=== PATIENT | female | born 1985 | race Hispanic/Latino ===

== ENCOUNTER 2018-06-26 13:55 | Emergency (ER) | payer OTHER, SELFPAY ==
--- NOTE | 2018-06-26 14:21 | EDPHYS ---
Physician Documentation [facility] Name: Soraya Castaneda Age: 33 yrs Sex: Female : 1985 Arrival Date: 06/26/2018 Time: 13:57 Bed 15 Private MD: None, None ED Physician Efren Santos HPI: 06/26 14:15 This 33 yrs old Female presents to ER via Wheelchair with complaints of Pain nilo All Over, Weakness, Fall Injury. 14:15 The patient presents to the emergency department with weakness of the difficult walking.nilo 14:16 The patient has shortness of breath at rest, with light activity. 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 - Social history:: Smoking status: Patient uses tobacco products, smokes one-half pack cigarettes per day, Patient/guardian denies using alcohol. - Ebola Screening: : No symptoms or risks identified at this time. ROS: 14:16 Constitutional: Negative for fever, chills, and weight loss, Eyes: Negative for injury, nilo pain, redness, and discharge, ENT: Negative for injury, pain, and discharge, Neck: Negative for injury, pain, and swelling, Cardiovascular: Negative for chest pain, palpitations, and edema, Back: Negative for injury and pain, : Negative for injury, bleeding, discharge, and swelling, MS/Extremity: Negative for injury and deformity, Neuro: Negative for headache, weakness, numbness, tingling, and seizure, Psych: Negative for depression, anxiety, suicide ideation, homicidal ideation, and hallucinations, Allergy/Immunology: Negative for hives, rash, and allergies, Endocrine: Negative for neck swelling, polydipsia, polyuria, polyphagia, and marked weight changes, Hematologic/Lymphatic: Negative for swollen nodes, abnormal bleeding, and unusual bruising. 14:16 Respiratory: Positive for shortness of breath. 14:16 Abdomen/GI: Positive for abdominal pain, nausea and vomiting, of the epigastric area, right upper quadrant and left upper quadrant. Exam: 14:16 Constitutional: This is a well developed, well nourished patient who is awake, alert, nilo and in no acute distress. Head/Face: Normocephalic, atraumatic. Eyes: Pupils equal round and reactive to light, extra-ocular motions intact. Lids and lashes normal. Conjunctiva and sclera are non-icteric and not injected. Cornea within normal limits. Periorbital areas with no swelling, redness, or edema. ENT: Nares patent. No nasal discharge, no septal abnormalities noted. Tympanic membranes are normal and external auditory canals are clear. Oropharynx with no redness, swelling, or masses, exudates, or evidence of obstruction, uvula midline. Mucous membranes moist. Neck: Trachea midline, no thyromegaly or masses palpated, and no cervical lymphadenopathy. Supple, full range of motion without nuchal rigidity, or vertebral point tenderness. No Meningismus. Chest/axilla: Normal chest wall appearance and motion. Nontender with no deformity. No lesions are appreciated. Cardiovascular: Regular rate and rhythm with a normal S1 and S2. No gallops, murmurs, or rubs. Normal PMI, no JVD. No pulse deficits. Respiratory: Lungs have equal breath sounds bilaterally, clear to auscultation and percussion. No rales, rhonchi or wheezes noted. No increased work of breathing, no retractions or nasal flaring. Back: No spinal tenderness. No costovertebral tenderness. Full range of motion. Skin: Warm, dry with normal turgor. Normal color with no rashes, no lesions, and no evidence of cellulitis. MS/ Extremity: Pulses equal, no cyanosis. Neurovascular intact. Full, normal range of motion. Neuro: Awake and alert, GCS 15, oriented to person, place, time, and situation. Cranial nerves II-XII grossly intact. Motor strength 5/5 in all extremities. Sensory grossly intact. Cerebellar exam normal. Normal gait. Psych: Awake, alert, with orientation to person, place and time. Behavior, mood, and affect are within normal limits. 14:16 Abdomen/GI: Inspection: distension, Bowel sounds: diminished, Palpation: mild abdominal tenderness, in the epigastric area, right upper quadrant and left upper quadrant, Liver: is firm, Hernia: not appreciated. Vital Signs: 14:09 BP 117 / 86; Pulse 132; Resp 16; Pulse Ox 97% ; Weight 45.36 kg; Height 5 ft. 5 in. sv (165.10 cm); Pain 10/10; 14:13 Temp 97.9(A); la1 15:05 BP 120 / 90; Pulse 112; Resp 16; Pulse Ox 98% on R/A; la1 14:09 Body Mass Index 16.64 (45.36 kg, 165.10 cm) sv MDM: 14:01 Patient medically screened. [facility] 14:16 Data reviewed: vital signs, nurses notes, lab test result(s), EKG, radiologic studies, [facility] plain films. 06/26 14:15 Order name: Basic Metabolic Panel; Complete Time: 15:10 [facility] 06/26 14:15 Order name: CBC with Diff; Complete Time: 15:10 [facility] 06/26 14:15 Order name: LFT's; Complete Time: 15:10 [facility] 06/26 14:15 Order name: Magnesium; Complete Time: 15:10 [facility] 06/26 14:15 Order name: NT PRO-BNP; Complete Time: 15:10 [facility] 06/26 14:15 Order name: PT-INR; Complete Time: 15:10 [facility] 06/26 14:15 Order name: Troponin (emerg Dept Use Only); Complete Time: 15:10 [facility] 06/26 14:15 Order name: XRAY Chest (1 view); Complete Time: 15:10 [facility] 06/26 14:15 Order name: Lipase; Complete Time: 15:10 [facility] 06/26 14:15 Order name: EKG; Complete Time: 14:16 [facility] 06/26 14:15 Order name: Cardiac monitoring; Complete Time: 14:38 [facility] 06/26 14:15 Order name: EKG - Nurse/Tech; Complete Time: 14:38 [facility] 06/26 14:15 Order name: IV Saline Lock; Complete Time: 14:38 [facility] 06/26 14:15 Order name: Labs collected and sent; Complete Time: 14:38 [facility] 06/26 14:15 Order name: O2 Per Protocol; Complete Time: 14:38 [facility] 06/26 14:15 Order name: O2 Sat Monitoring; Complete Time: 14:38 [facility] Administered Medications: 14:37 Drug: Zofran 4 mg Route: IVP; Site: right upper arm; la1 15:04 Follow up: Response: No adverse reaction la1 14:37 Drug: NS 0.9% 500 ml Route: IV; Rate: bolus; Site: right upper arm; la1 15:04 Follow up: IV Status: Completed infusion la1 14:38 Drug: NS 0.9% 1000 ml Route: IV; Rate: 125 ml/hr; Site: right upper arm; la1 15:05 Follow up: IV Status: Infusion continued upon admission la1 14:38 Drug: ProTONIX 40 mg Route: IVP; Site: right upper arm; la1 15:05 Follow up: Response: No adverse reaction la1 14:38 Drug: Dilaudid 1 mg Route: IVP; Site: right upper arm; la1 15:05 Follow up: Response: No adverse reaction; Pain is decreased la1 16:29 Drug: Zofran 4 mg Route: IVP; Site: right upper arm; la1 16:29 Follow up: Response: No adverse reaction; Nausea is decreased la1 Disposition: 06/26/18 14:21 Transfer ordered to [facility]. Diagnosis are Vomiting - obstruction of gastroeso junction, stage 4 adenocarcinoma, Dyspnea, Abdominal tenderness, Ascites. - Reason for transfer: Higher level of care. - Accepting physician is robert yang. - Condition is Serious. - Problem is an ongoing problem. - Symptoms have worsened. Signatures: Dispatcher [employer] Akilah Rebolledo, RN RN Efren Hancock MD MD cha Attema, Lee, RN RN la1 Corrections: (The following items were deleted from the chart) 14:33 14:21 06/26/2018 14:21 Transfer ordered to Other Acute Care Facility. Diagnosis is nilo Vomiting - obstruction of gastroeso junction, stage 4 adenocarcinoma; Dyspnea; Abdominal tenderness. Reason for transfer: Higher level of care. Accepting physician is to dr hernandez j. ajani. Condition is Serious. Problem is an ongoing problem. Symptoms have worsened. [facility] 15:16 14:33 06/26/2018 14:21 Transfer ordered to Other Acute Care Facility. Diagnosis is nilo Vomiting - obstruction of gastroeso junction, stage 4 adenocarcinoma; Dyspnea; Abdominal tenderness; Ascites. Reason for transfer: Higher level of care. Accepting physician is to dr hernandez j. ajani. Condition is Serious. Problem is an ongoing problem. Symptoms have worsened. nilo 17:12 15:16 06/26/2018 14:21 Transfer ordered to [facility]. Diagnosis is la1 Vomiting - obstruction of gastroeso junction, stage 4 adenocarcinoma; Dyspnea; Abdominal tenderness; Ascites. Reason for transfer: Higher level of care. Accepting physician is robert yang. Condition is Serious. Problem is an ongoing problem. Symptoms have worsened. nilo
--- NOTE | 2018-06-26 14:21 | ER ---
Nurse's Notes [facility] Name: Soraya Castaneda Age: 33 yrs Sex: Female : 1985 Arrival Date: 06/26/2018 Time: 13:57 Bed 15 Private MD: None, None Diagnosis: Vomiting-obstruction of gastroeso junction, stage 4 adenocarcinoma;Dyspnea;Abdominal tenderness;Ascites Presentation: 06/26 13:59 Presenting complaint: Patient states: pain all over, weakness, SOB, and nausea. sv Transition of care: patient was not received from another setting of care. 13:59 Method Of Arrival: Wheelchair sv 14:07 Onset of symptoms was June 26, 2018. Care prior to arrival: None. sv 14:07 Acuity: BRIAN 3 sv 14:10 Risk Assessment: Do you want to hurt yourself or someone else? Patient reports no la1 desire to harm self or others. Initial Sepsis Screen: Does the patient meet any 2 criteria? HR > 90 bpm. Does the patient have a suspected source of infection? No. Patient's initial sepsis screen is negative. Triage Assessment: 13:59 General: Appears in no apparent distress. uncomfortable, slender, Behavior is calm, sv cooperative, appropriate for age. Pain: Complains of pain in "all over" Pain currently is 10 out of 10 on a pain scale. Is continuous. Neuro: Level of Consciousness is awake, alert, obeys commands, Oriented to person, place, time, situation, Moves all extremities. Gait is steady. Respiratory: Respiratory effort is even, unlabored, shallow, Respiratory pattern is regular, symmetrical. 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 - Social history:: Smoking status: Patient uses tobacco products, smokes one-half pack cigarettes per day, Patient/guardian denies using alcohol. - Ebola Screening: : No symptoms or risks identified at this time. Screenin:40 Abuse screen: Denies threats or abuse. Nutritional screening: No deficits noted. la1 Tuberculosis screening: No symptoms or risk factors identified. Fall Risk None identified. Assessment: 14:38 General: Appears ill, emaciated, Behavior is cooperative. Pain: Complains of pain in la1 left upper quadrant and right upper quadrant and epigastric area Pain currently is 9 out of 10 on a pain scale. Neuro: Level of Consciousness is awake, alert, obeys commands, Oriented to person, place, time, situation. Cardiovascular: Heart tones S1 S2 present Capillary refill < 3 seconds Patient's skin is warm and dry. Respiratory: Airway is patent Respiratory effort is even, unlabored, Respiratory pattern is regular, symmetrical. GI: Pt is actively vomiting bile, Bowel sounds present X 4 quads. Abd is non tender X 4 quads Reports nausea, vomiting. Vital Signs: 14:09 BP 117 / 86; Pulse 132; Resp 16; Pulse Ox 97% ; Weight 45.36 kg; Height 5 ft. 5 in. sv (165.10 cm); Pain 10/10; 14:13 Temp 97.9(A); la1 15:05 BP 120 / 90; Pulse 112; Resp 16; Pulse Ox 98% on R/A; la1 14:09 Body Mass Index 16.64 (45.36 kg, 165.10 cm) sv ED Course: 13:57 Patient arrived in ED. mr 13:58 None, None is Private Physician. mr 13:59 Arm band placed on Patient placed in an exam room, on a stretcher, on pulse oximetry. sv 14:01 Piotr Dukes RN is Primary Nurse. la1 14:01 Efren Santos MD is Attending Physician. nilo 14:08 Triage completed. sv 14:39 Accessed PICC line. Clean \\T\\ dry. Dressing intact. Good blood return. Flushes easily. la1 14:40 X-ray completed. Portable x-ray completed in exam room. Patient tolerated procedure mh1 well. 14:40 Placed in gown. Bed in low position. Call light in reach. Pulse ox on. NIBP on. la1 14:41 XRAY Chest (1 view) In Process Unspecified. EDMS 14:45 EKG done, by weight reducing technician. reviewed by Efren Santos MD. tc 17:11 No provider procedures requiring assistance completed. Patient transferred, IV remains la1 in place. Administered Medications: 14:37 Drug: Zofran 4 mg Route: IVP; Site: right upper arm; la1 15:04 Follow up: Response: No adverse reaction la1 14:37 Drug: NS 0.9% 500 ml Route: IV; Rate: bolus; Site: right upper arm; la1 15:04 Follow up: IV Status: Completed infusion la1 14:38 Drug: NS 0.9% 1000 ml Route: IV; Rate: 125 ml/hr; Site: right upper arm; la1 15:05 Follow up: IV Status: Infusion continued upon admission la1 14:38 Drug: ProTONIX 40 mg Route: IVP; Site: right upper arm; la1 15:05 Follow up: Response: No adverse reaction la1 14:38 Drug: Dilaudid 1 mg Route: IVP; Site: right upper arm; la1 15:05 Follow up: Response: No adverse reaction; Pain is decreased la1 16:29 Drug: Zofran 4 mg Route: IVP; Site: right upper arm; la1 16:29 Follow up: Response: No adverse reaction; Nausea is decreased la1 Outcome: 14:21 ER care complete, transfer ordered by MD. corcoran 17:11 Transferred by ground EMS to [facility], Transfer form completed. X-rays la1 sent w/ patient. 17:11 Condition: stable 17:11 Instructed on the need for transfer. 17:12 Patient left the ED. la1 Signatures: Dispatcher [employer] Akilah Rebolledo, Efren Oneal RN, MD MD cha Rivera, Katherine mr Abiola [facility] Karley Barahona, facilitator EKG Piotr Ashraf, ELOY RN penny1
[2018-06-26] MEDS ORDERED: ONDANSETRON 4 MG/2 ML VIAL ONE ×2 (14:35→16:23)
[2018-06-26] MEDS ORDERED: PANTOPRAZOLE 40 MG INJ ONE (14:35)
[2018-06-26] MEDS ORDERED: NA CHLORIDE 0.9% 1,000 ML ONE (14:35)
[2018-06-26] MEDS ORDERED: HYDROMORPHONE HCL 1 MG/ML INJ ONE (14:35)
[2018-06-26 14:39] LABS: Absolute Lymphocytes (CBC) 1.3 K/uL (0.7-4.9); Absolute Monocytes 0.9 K/uL (0.1-1.3); Absolute Neutrophil 4.5 K/uL (1.8-8.0); Basophils % 0.1 % (0-1.3); Eosinophils % 1.4 % (0-4.4); Hematocrit 33.3 % (36.0-45.0); Lymphocytes % 19.6 % (15.3-44.8); MCV 79.3 fL (80-100); MPV 8.9 fL (7.6-11.3); Monocytes % 12.9 % (3.3-12.3); Protime INR 1.16
--- NOTE | 2018-06-26 14:47 | RAD REPORT ---
EXAM DESCRIPTION: Juan Single View06/26/2018 2:41 pm CLINICAL HISTORY: Chest pain COMPARISON: none FINDINGS: The lungs appear clear of acute infiltrate. The heart is normal size. A PICC line has its tip several centimeters into the right atrium
[2018-06-26 14:51] LABS: ALT/SGPT 74 U/L (12-78); AST/SGOT 32 U/L (15-37); Albumin 2.9 g/dL (3.4-5.0); Alkaline Phosphatase 183 U/L (45-117); BUN Blood Urea Nitrogen 29 mg/dL (7-18); Bicarbonate 21 mmol/L (21-32); Bilirubin Direct 0.4 mg/dL (0-0.2); Bilirubin Total 0.7 mg/dL (0.2-1.0); Glucose Level 126 mg/dL (74-106); Lipase 166 U/L (73-393); Magnesium 2.3 mg/dL (1.8-2.4); NT PRO-BNP 194 pg/mL (<125); Potassium 3.7 mmol/L (3.5-5.1); Protein, Total 8.3 g/dL (6.4-8.2); Sodium Level 129 mmol/L (136-145); Troponin (Emerg Dept Use Only) < 0.02 ng/mL (0.0-0.045)
--- NOTE | 2018-06-26 15:14 | EKG ---
Test Date: 2018-06-26 Test Time: 14:36:15 [employer] Operator: MILI MEASUREMENT RESULTS: Intervals: Rate: 120 TX: 114 QRSD: 78 QT: 306 QTc: 432 [place]: P: 77 TX: 114 QRS: 75 T: 63 INTERPRETIVE STATEMENTS: Sinus tachycardia Otherwise normal ECG No previous ECG available for comparison Electronically Signed On 06-26-18 15:14:06 CDT by Jason Squires
== END 2018-06-26 17:12 | disposition short-term general hospital (02) ==
LOC: ER 13:55
DX: C16.0 Malignant neoplasm of cardia (principal); C79.89 Secondary malignant neoplasm of other specified sites; C79.60 Secondary malignant neoplasm of unspecified ovary; R06.00 Dyspnea, unspecified; R18.8 Other ascites; W18.30XA Fall on same level, unspecified, initial encounter; Y93.9 Activity, unspecified; Y92.009 Unspecified place in unspecified non-institutional (private) residence as the place of occurrence of the external cause; F17.210 Nicotine dependence, cigarettes, uncomplicated
CPT/HCPCS: 36415; 71045; 80048; 80076; 83690; 83735; 83880; 84484; 85025; 85610; 93005; 96374; 96375; 99285; C9113; J1170; J2405; J7030

== ENCOUNTER 2018-07-10 20:41 | Emergency (ER) | payer OTHER ==
--- OUTSIDE RECORDS SUMMARY | 2018-07-10 20:44 | XMS REPORT | Clinical Summary ---
:1985 Author Organization [facility] Address [address] [place] [address] Care Team Providers Name Role Phone Asked, No Pcp Primary Care Provider Unavailable Allergies No Known Allergies Medications Medication Sig Dispensed Refills Start Date End Date Status ondansetron Infuse 2 mL (4 20 mL 0 06/28/2018 Active (ZOFRAN) 4 mg/2 mL mg total) into injection a venous catheter every 8 (eight) hours as needed for nausea or vomiting. scopolamine Place 1 patch 10 patch 11 06/28/2018 06/28/2019 Active (TRANSDERM-SCOP) 1 on the skin mg over 3 days every third day. sodium chloride Infuse 12.5 mg 1 mL 0 06/28/2018 Active 0.9% solution 10 mL into a venous with promethazine catheter every 25 mg/mL solution 6 (six) hours 12.5 mg injection as needed for nausea or vomiting. enoxaparin Inject 0.4 mL 0 06/28/2018 Active (LOVENOX) 40 mg/0.4 (40 mg total) mL syringe under the skin daily. potassium Infuse 50 0 06/28/2018 Active chloride/D5-0.9%NaC mL/hr into a l (POTASSIUM venous CHLORIDE-DEXTROSE catheter 5%-0.9% SODIUM continuously. CHLORIDE) 20 mEq/L TPN FOR DISCHARGE See most 1 Package 0 06/28/2018 Active recent TPN order. fentaNYL Place 1 patch 0 06/24/2018 06/26/2018 Discontinued (DURAGESIC) 75 on the skin mcg/hr every third day. 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 Last Filed Vital Signs Vital Sign Reading Time Taken Blood Pressure 117/83 06/28/2018 11:42 AM CDT Pulse 124 06/28/2018 11:42 AM CDT Temperature 36.4 C (97.6 F) 06/28/2018 11:42 AM CDT Respiratory Rate 18 06/28/2018 11:42 AM CDT Oxygen Saturation 100% 06/28/2018 11:42 AM CDT Inhaled Oxygen Concentration - - Weight 46.6 kg (102 lb 12.8 oz) 06/26/2018 7:54 PM CDT Height 165.1 cm (5' 5") 06/26/2018 7:54 PM CDT Body Mass Index 17.11 06/26/2018 7:54 PM CDT Plan of Treatment Health Maintenance Due Date Last Done Comments CERVICAL CANCER SCREENING 2006 INFLUENZA VACCINE 03/27/2018 Implants Implanted Type Area Drier Feeder Device Identifier Shelf Expiration Model / Date Serial / Lot Control Procedures Procedure Name Priority Date/Time Associated Comments Diagnosis ESTIMATED GFR Routine 06/28/2018 4:45 Results for this AM CDT procedure are in the results section. PHOSPHORUS LEVEL Routine 06/28/2018 4:45 Results for this AM CDT procedure are in the results section. MAGNESIUM LEVEL Routine 06/28/2018 4:45 Results for this AM CDT procedure are in the results section. BASIC METABOLIC PANEL Routine 06/28/2018 4:45 Results for this AM CDT procedure are in the results section. TRIGLYCERIDES Routine 06/28/2018 4:45 Results for this AM CDT procedure are in the results section. POC GLUCOSE Routine 06/28/2018 3:51 Results for this AM CDT procedure are in the results section. POC GLUCOSE Routine 06/27/2018 10:36 Results for this PM CDT procedure are in the results section. ESTIMATED GFR Routine 06/27/2018 4:00 Results for this AM CDT procedure are in the results section. PHOSPHORUS LEVEL Routine 06/27/2018 4:00 Results for this AM CDT procedure are in the results section. MAGNESIUM LEVEL Routine 06/27/2018 4:00 Results for this AM CDT procedure are in the results section. BASIC METABOLIC PANEL Routine 06/27/2018 4:00 Results for this AM CDT procedure are in the results section. HC COMPLETE BLD COUNT Routine 06/26/2018 10:45 Results for this W/AUTO DIFF PM CDT procedure are in the results section. XR CHEST 1 VW PORTABLE STAT 06/26/2018 9:40 Results for this PM CDT procedure are in the results section. TYPE AND SCREEN Routine 06/26/2018 9:40 Results for this PM CDT procedure are in the results section. PROTHROMBIN TIME WITH STAT 06/26/2018 9:40 Results for this INR PM CDT procedure are in the results section. PARTIAL THROMBOPLASTIN STAT 06/26/2018 9:40 Results for this TIME (PTT) PM CDT procedure are in the results section. CBC WITH PLATELET AND STAT 06/26/2018 9:40 Results for this DIFFERENTIAL PM CDT procedure are in the results section. PREALBUMIN LEVEL Routine 06/26/2018 9:09 Results for this PM CDT procedure are in the results section. C-REACTIVE PROTEIN Routine 06/26/2018 9:09 Results for this PM CDT procedure are in the results section. CARCINOEMBRYONIC ANTIGEN Routine 06/26/2018 8:49 Results for this (CEA) PM CDT procedure are in the results section. ESTIMATED GFR STAT 06/26/2018 8:48 Results for this PM CDT procedure are in the results section. PHOSPHORUS LEVEL STAT 06/26/2018 8:48 Results for this PM CDT procedure are in the results section. MAGNESIUM LEVEL STAT 06/26/2018 8:48 Results for this PM CDT procedure are in the results section. LDH STAT 06/26/2018 8:48 Results for this PM CDT procedure are in the results section. LACTIC ACID LEVEL STAT 06/26/2018 8:48 Results for this PM CDT procedure are in the results section. IONIZED CALCIUM STAT 06/26/2018 8:48 Results for this PM CDT procedure are in the results section. HEPATIC FUNCTION PANEL STAT 06/26/2018 8:48 Results for this PM CDT procedure are in the results section. BASIC METABOLIC PANEL STAT 06/26/2018 8:48 Results for this PM CDT procedure are in the results section. after 07/09/2017 Results Estimated GFR (06/28/2018 4:45 AM CDT)Only the most recent of3 resultswithin the time period is included. Estimated GFR >=90 mL/min/1.73 m2 [facility] DEPARTMENT OF Comment: PATHOLOGY AND GENOMIC CatergoryUnitsInterpretation MEDICINE G1 >=90 Normal or high G2 60-89Mildly decreased [id number] to moderately decreased [id number] to severely decreased G4 15-29Severely decreased G5 <15Kidney failure The eGFR was calculated using the Chronic Kidney Disease Epidemiology Collaboration (CKD-EPI) equation. Interpretation is based on recommendations of the National Kidney Foundation-Kidney Disease Outcomes Quality Initiative (NKF-KDOQI) published in 2014. Specimen Plasma specimen Performing Organization Address City/[facility] Phone Number [facility] DEPARTMENT OF PATHOLOGY AND [address] [place] [address] Triglycerides (06/28/2018 4:45 AM CDT) Triglycerides 102 <150 mg/dL [facility] DEPARTMENT OF PATHOLOGY AND GENOMIC MEDICINE Specimen Plasma specimen Performing Organization Address [facility] Phone Number [facility] DEPARTMENT OF PATHOLOGY AND [address] [place] [address] Phosphorus level (06/28/2018 4:45 AM CDT)Only the most recent of3 resultswithin the time period is included. Phosphorus 2.3 (L) 2.4 - 4.5 mg/dL [facility] DEPARTMENT OF PATHOLOGY AND GENOMIC MEDICINE Specimen Plasma specimen Performing Organization Address [facility] Phone Number [facility] DEPARTMENT OF PATHOLOGY AND [address] [place] [address] Magnesium level (06/28/2018 4:45 AM CDT)Only the most recent of3 resultswithin the time period is included. Magnesium 1.7 1.6 - 2.6 mg/dL [facility] DEPARTMENT OF PATHOLOGY AND GENOMIC MEDICINE Specimen Plasma specimen Performing Organization Address [facility] Phone Number [facility] DEPARTMENT OF PATHOLOGY AND [address] [place] [address] Basic metabolic panel (06/28/2018 4:45 AM CDT)Only the most recent of3 resultswithin the time period is included. Sodium 135 135 - 148 mEq/L [facility] DEPARTMENT OF PATHOLOGY AND GENOMIC MEDICINE Potassium 4.5 3.5 - 5.0 mEq/L [facility] DEPARTMENT OF PATHOLOGY AND GENOMIC MEDICINE Chloride 101 98 - 112 mEq/L [facility] DEPARTMENT OF PATHOLOGY AND GENOMIC MEDICINE CO2 20 (L) 24 - 31 mEq/L [facility] DEPARTMENT OF PATHOLOGY AND GENOMIC MEDICINE Anion gap 14@ANIO 7 - 15 mEq/L [facility] DEPARTMENT OF PATHOLOGY AND GENOMIC MEDICINE BUN 18 6 - 20 mg/dL [facility] DEPARTMENT OF PATHOLOGY AND GENOMIC MEDICINE Creatinine 0.43 (L) 0.50 - 0.90 mg/dL [facility] DEPARTMENT OF PATHOLOGY AND GENOMIC MEDICINE Glucose 140 (H) 65 - 99 mg/dL [facility] DEPARTMENT OF PATHOLOGY AND GENOMIC MEDICINE Calcium 9.3 8.3 - 10.2 mg/dL [facility] DEPARTMENT OF PATHOLOGY AND GENOMIC MEDICINE Specimen Plasma specimen Performing Organization Address [facility] Phone Number [facility] DEPARTMENT OF PATHOLOGY AND [address] [place] [address] GENOMIC MEDICINE POC glucose (06/28/2018 3:51 AM CDT)Only the most recent of2 resultswithin the time period is included. POC glucose 141 (H) 65 - 99 mg/dL [facility] DEPARTMENT OF PATHOLOGY AND Comment: GENOMIC MEDICINE No Action Needed Meter ID: [id number] Technical Services Specialist: Kaden Cintron Performing Organization Address City/[facility]/Zipcode Phone Number [facility] DEPARTMENT OF PATHOLOGY AND [address] [place] [address] CBC with platelet and differential (06/26/2018 10:45 PM CDT)Only the most recent of2 resultswithin the time period is included. WBC 6.69 4.50 - 11.00 k/uL [facility] DEPARTMENT OF PATHOLOGY AND GENOMIC MEDICINE RBC 3.77 (L) 4.20 - 5.50 m/uL [facility] DEPARTMENT OF PATHOLOGY AND GENOMIC MEDICINE HGB 9.7 (L) 12.0 - 16.0 g/dL [facility] DEPARTMENT OF PATHOLOGY AND GENOMIC MEDICINE HCT 30.5 (L) 37.0 - 47.0 % [facility] DEPARTMENT OF PATHOLOGY AND GENOMIC MEDICINE MCV 80.9 (L) 82.0 - 100.0 fL [facility] DEPARTMENT OF PATHOLOGY AND GENOMIC MEDICINE MCH 25.7 (L) 27.0 - 34.0 pg [facility] DEPARTMENT OF PATHOLOGY AND GENOMIC MEDICINE MCHC 31.8 31.0 - 37.0 g/dL [facility] DEPARTMENT OF PATHOLOGY AND GENOMIC MEDICINE RDW - SD 47.8 37.0 - 55.0 fL [facility] DEPARTMENT OF PATHOLOGY AND GENOMIC MEDICINE MPV 10.6 8.8 - 13.2 fL [facility] DEPARTMENT OF PATHOLOGY AND GENOMIC MEDICINE Platelet count 408 (H) 150 - 400 k/uL [facility] DEPARTMENT OF PATHOLOGY AND GENOMIC MEDICINE Nucleated RBC 0.00 /100 WBC [facility] DEPARTMENT OF PATHOLOGY AND GENOMIC MEDICINE Neutrophils 64.3 39.0 - 69.0 % [facility] DEPARTMENT OF PATHOLOGY AND GENOMIC MEDICINE Lymphocytes 21.2 (L) 25.0 - 45.0 % [facility] DEPARTMENT OF PATHOLOGY AND GENOMIC MEDICINE Monocytes 12.4 (H) 0.0 - 10.0 % [facility] DEPARTMENT OF PATHOLOGY AND GENOMIC MEDICINE Eosinophils 1.0 0.0 - 5.0 % [facility] DEPARTMENT OF PATHOLOGY AND GENOMIC MEDICINE Basophils 0.1 0.0 - 1.0 % [facility] DEPARTMENT OF PATHOLOGY AND GENOMIC MEDICINE Immature granulocytes 1.0Comment: 0.0 - 1.0 % [facility] DEPARTMENT OF "Immature PATHOLOGY AND GENOMIC granulocytes" MEDICINE (promyelocytes, myelocytes, metamyelocytes) Performing Organization Address City/State/Zipcode Phone Number [facility] DEPARTMENT OF PATHOLOGY AND [address] [place] [address] [facility] XR Chest 1 Vw Portable (06/26/2018 9:40 PM CDT) Narrative Performed At EXAMINATION:XR CHEST 1 VW PORTABLE [facility]IANT CLINICAL HISTORY:PIcc line TECHNIQUE:XR CHEST 1 VW PORTABLE COMPARISON:None. FINDINGS: Lines/tubes:There is a rightupper extremity PICC with its tip terminating near the cavoatrial junction.. Heart and mediastinum:Unremarkable Lungs:The lungs are well inflated and clear. There is no evidence of pneumonia or pulmonary edema. Pleura:There is no pleural effusion. There is no pneumothorax. Bones and Soft Tissues:Unremarkable. Abdomen: Surgical clips project over the right upper quadrant of the abdomen, suggestive of prior cholecystectomy. IMPRESSION: Right upper extremity PICC terminates near the cavoatrial junction. No acute cardiopulmonary abnormality. [facility]-[id number] Procedure Note Interface, Radiology Results Incoming - 06/26/2018 9:47 PM CDT EXAMINATION: XR CHEST 1 VW PORTABLE CLINICAL HISTORY: PIcc line TECHNIQUE: XR CHEST 1 VW PORTABLE COMPARISON: None. FINDINGS: Lines/tubes: There is a right upper extremity PICC with its tip terminating near the cavoatrial junction.. Heart and mediastinum: Unremarkable Lungs: The lungs are well inflated and clear. There is no evidence of pneumonia or pulmonary edema. Pleura: There is no pleural effusion. There is no pneumothorax. Bones and Soft Tissues: Unremarkable. Abdomen: Surgical clips project over the right upper quadrant of the abdomen, suggestive of prior cholecystectomy. IMPRESSION: Right upper extremity PICC terminates near the cavoatrial junction. No acute cardiopulmonary abnormality. [facility]-[id number] Performing Organization Address [facility] Phone Number [facility] [address] [place] [address] Partial thromboplastin time, activated (06/26/2018 9:40 PM CDT) PTT 22.6 (L) 23.0 - 36.0 sec [facility] DEPARTMENT OF PATHOLOGY Comment: AND GENOMIC MEDICINE PTT therapeutic range for unfractionated heparin is 61.0-112.0 seconds which corresponds to Anti-Xa 0.3-0.7 U/ml. Specimen Blood Performing Organization Address [facility] Phone Number [facility] DEPARTMENT OF PATHOLOGY AND [address] [place] [phone] [facility] Prothrombin time with INR (06/26/2018 9:40 PM CDT) Prothrombin time 13.9 11.5 - 14.5 sec [facility] DEPARTMENT OF PATHOLOGY AND GENOMIC MEDICINE INR 1.1 [facility] DEPARTMENT OF Comment: PATHOLOGY AND GENOMIC The International Normalized Ratio (INR) is a therapeutic MEDICINE monitoring tool for patients who are stable on oral anticoagulant therapy. An INR of 2.0-3.0 is suggested for deep vein thrombosis/pulmonary embolism. Specimen Blood Performing Organization Address [facility] Phone Number [facility] DEPARTMENT OF PATHOLOGY AND [address] [place] [address] GENOMIC MEDICINE Type and screen (06/26/2018 9:40 PM CDT) ABO grouping O [facility] DEPARTMENT OF PATHOLOGY AND GENOMIC MEDICINE Rh type POS [facility] DEPARTMENT OF PATHOLOGY AND GENOMIC MEDICINE Antibody screen (gel) NEG [facility] DEPARTMENT OF PATHOLOGY AND GENOMIC MEDICINE Specimen Blood Performing Organization Address City/[facility] Phone Number [facility] DEPARTMENT OF PATHOLOGY AND [address] [place] [address] GENOMIC MEDICINE C-reactive protein (06/26/2018 9:09 PM CDT) CRP 13.03 (H) 0.00 - 0.50 mg/dL [facility] DEPARTMENT OF PATHOLOGY AND GENOMIC MEDICINE Specimen Plasma specimen Performing Organization Address [facility] Phone Number [facility] DEPARTMENT OF PATHOLOGY AND [address] [place] [address] Prealbumin level (06/26/2018 9:09 PM CDT) Prealbumin 14 (L) 16 - 32 mg/dL [facility] DEPARTMENT OF PATHOLOGY AND GENOMIC MEDICINE Specimen Serum Performing Organization Address [facility] Phone Number [facility] DEPARTMENT OF PATHOLOGY AND [address] [place] [address] Carcinoembryonic antigen (CEA) (06/26/2018 8:49 PM CDT) CEA 2.6 0.0 - 3.8 ng/mL [facility] DEPARTMENT OF PATHOLOGY Comment: AND GENOMIC MEDICINE Reference range for heavy smokers:0.0 - 5.5 ng/mL The YOLANDA Anita 8000 CEA immunoassay was used. Results obtained with different assay methods or kits should not be used interchangeably and may be different. Specimen Serum Performing Organization Address [facility] Phone Number [facility] DEPARTMENT OF PATHOLOGY AND [address] [place] [address] LDH (06/26/2018 8:48 PM CDT) LDH 212 87 - 225 U/L [facility] DEPARTMENT OF PATHOLOGY AND GENOMIC MEDICINE Specimen Plasma specimen Performing Organization Address [facility] Phone Number [facility] DEPARTMENT OF PATHOLOGY AND [address] [place] [address] Lactic acid level (06/26/2018 8:48 PM CDT) Lactic acid 1.3 0.5 - 2.2 mmol/L [facility] DEPARTMENT OF PATHOLOGY AND GENOMIC MEDICINE Specimen Plasma specimen Performing Organization Address [facility] Phone Number [facility] DEPARTMENT OF PATHOLOGY AND [address] [place] [address] Ionized calcium (06/26/2018 8:48 PM CDT) pH 7.39 [facility] DEPARTMENT OF PATHOLOGY AND GENOMIC MEDICINE Ionized calcium 1.28 1.11 - 1.32 mmol/L [facility] DEPARTMENT OF PATHOLOGY AND GENOMIC MEDICINE Specimen Plasma specimen Performing Organization Address [facility]/Zipcode Phone Number [facility] DEPARTMENT OF PATHOLOGY AND [address] [place] [address] GENOMIC MEDICINE Hepatic function panel (06/26/2018 8:48 PM CDT) Albumin 2.6 (L) 3.5 - 5.0 g/dL [facility] DEPARTMENT OF PATHOLOGY AND GENOMIC MEDICINE Total bilirubin 0.7 0.0 - 1.2 mg/dL [facility] DEPARTMENT OF PATHOLOGY AND GENOMIC MEDICINE Bilirubin direct 0.3 0.0 - 0.3 mg/dL [facility] DEPARTMENT OF PATHOLOGY AND GENOMIC MEDICINE Alkaline phosphatase 180 (H) 35 - 104 U/L [facility] DEPARTMENT OF PATHOLOGY AND GENOMIC MEDICINE Protein 7.8 6.3 - 8.3 g/dL [facility] DEPARTMENT OF Comment: PATHOLOGY AND GENOMIC 4.6-7.0 g/dL MEDICINE 1 week 4.4-7.6 g/dL 7 months-1year5.1-7.3 g/dL 1-2 years5.6-7.5 g/dL >3 years6.0-8.0 g/dL 18-150 6.3-8.3 g/dL ALT 66 (H) 5 - 50 U/L [facility] DEPARTMENT OF PATHOLOGY AND GENOMIC MEDICINE AST 49 (H) 10 - 35 U/L [facility] DEPARTMENT OF PATHOLOGY AND GENOMIC MEDICINE Specimen Plasma specimen Performing Organization Address City/State/Zipcode Phone Number [facility] DEPARTMENT OF PATHOLOGY AND [address] [place] [address] [facility] after 07/09/2017 Insurance Payer Benefit Plan / Group Subscriber ID Type Phone Address [facility] xxxxxxxxxx Commercial Advance Directives Patient has advance care planning documents on file. For more information, please contact:T[id number] [place] [address]
[2018-07-10] MEDS ORDERED: NA CHLORIDE 0.9% 1,000 ML ONE (22:08)
[2018-07-10] MEDS ORDERED: HYDROMORPHONE HCL 1 MG/ML INJ ONE (22:08)
[2018-07-11] MEDS ORDERED: HYDROMORPHONE HCL 1 MG/ML INJ ONE (00:27)
--- NOTE | 2018-07-11 01:43 | EDPHYS ---
Physician Documentation [facility] Name: Soraya Castaneda Age: 33 yrs Sex: Female : 1985 Arrival Date: 07/10/2018 Time: 20:44 Bed 20 Private MD: None, None ED Physician Og Ervin HPI: 07/11 01:39 This 33 yrs old Female presents to ER via Wheelchair with complaints of gs Breathing Difficulty. 01:39 Onset: The symptoms/episode began/occurred this morning. Duration: The symptoms are gs intermittent. Associated signs and symptoms: Pertinent negatives: chest pain, general weakness. Severity of symptoms: At their worst the symptoms were moderate in the emergency department the symptoms are unchanged. The patient has experienced similar episodes in the past, chronically. pt is terminal ca, feels weak sob on hospice . 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 - Social history:: Smoking status: Patient/guardian denies using tobacco. - Ebola Screening: : Patient negative for fever greater than or equal to 101.5 degrees Fahrenheit, and additional compatible Ebola Virus Disease symptoms Patient denies exposure to infectious person Patient denies travel to an Ebola-affected area in the 21 days before illness onset No symptoms or risks identified at this time. ROS: 07/11 01:39 All other systems are negative. gs Exam: 01:39 Head/Face: Normocephalic, atraumatic. Eyes: Pupils equal round and reactive to light, gs extra-ocular motions intact. Lids and lashes normal. Conjunctiva and sclera are non-icteric and not injected. Cornea within normal limits. Periorbital areas with no swelling, redness, or edema. ENT: Nares patent. No nasal discharge, no septal abnormalities noted. Tympanic membranes are normal and external auditory canals are clear. Oropharynx with no redness, swelling, or masses, exudates, or evidence of obstruction, uvula midline. Mucous membranes moist. Neck: Trachea midline, no thyromegaly or masses palpated, and no cervical lymphadenopathy. Supple, full range of motion without nuchal rigidity, or vertebral point tenderness. No Meningismus. Chest/axilla: Normal chest wall appearance and motion. Nontender with no deformity. No lesions are appreciated. 01:39 Abdomen/GI: Soft, non-tender, with normal bowel sounds. No distension or tympany. No guarding or rebound. No evidence of tenderness throughout. Skin: Warm, dry with normal turgor. Normal color with no rashes, no lesions, and no evidence of cellulitis. MS/ Extremity: Pulses equal, no cyanosis. Neurovascular intact. Full, normal range of motion. Neuro: Awake and alert, GCS 15, oriented to person, place, time, and situation. Cranial nerves II-XII grossly intact. Motor strength 5/5 in all extremities. Sensory grossly intact. Cerebellar exam normal. Normal gait. 01:39 Constitutional: The patient appears alert, awake, frail. 01:39 Cardiovascular: Rate: tachycardic, Rhythm: regular. 01:39 Respiratory: mild respiratory distress is noted, Respirations: tachypnea, Breath sounds: rhonchi, that are mild, are heard diffusely. Vital Signs: 07/10 20:55 BP 83 / 53; Pulse 126; Resp 34; Temp 97.8(A); Pulse Ox 99% on R/A; Weight 45.36 kg; aj Height 5 ft. 5 in. (165.10 cm); 20:55 Body Mass Index 16.64 (45.36 kg, 165.10 cm) MDM: 21:36 Patient medically screened. 07/11 01:39 Data reviewed: vital signs, nurses notes. Counseling: I had a detailed discussion with the patient and/or guardian regarding: the historical points, exam findings, and any diagnostic results supporting the discharge/admit diagnosis, pt and family wish to be discharge will contact hospice for further interventions, pt states she feels much better. Administered Medications: 07/10 22:09 Drug: NS 0.9% 1000 ml Route: IV; Rate: 1 bolus; Site: left wrist; jd3 07/11 02:04 Follow up: Response: No adverse reaction; IV Status: Completed infusion; IV Intake: jd3 1000ml 07/10 22:09 Drug: Dilaudid 1 mg Route: IVP; Site: left wrist; jd3 23:00 Follow up: Response: No adverse reaction; Pain is decreased jd3 07/11 00:25 Drug: Dilaudid 1 mg Route: IVP; Site: right wrist; jd3 02:06 Follow up: Response: No adverse reaction jd3 Disposition: 07/11/18 01:42 Discharged to Home. Impression: Weakness, Dehydration, Hypoxemia. - Condition is Stable. - Discharge Instructions: Dehydration, Adult, Weakness. - Medication Reconciliation Form, Thank You Letter, Antibiotic Education, Prescription Opioid Use form. - Follow up: Private Physician; When: 1 - 2 days; Reason: Re-evaluation by your physician. Signatures: Maribeth Gaston RN RN aj Starr, Gregory, MD MD gs Davies, Jonathon, RN RN jd3 Corrections: (The following items were deleted from the chart) 02:06 01:42 07/11/2018 01:42 Discharged to Home. Impression: Weakness; Dehydration; jd3 Hypoxemia. Condition is Stable. Forms are Medication Reconciliation Form, Thank You Letter, Antibiotic Education, Prescription Opioid Use. Follow up: Private Physician; When: 1 - 2 days; Reason: Re-evaluation by your physician. gs
--- NOTE | 2018-07-11 01:43 | ER ---
Nurse's Notes [facility] Name: Soraya Castaneda Age: 33 yrs Sex: Female : 1985 Arrival Date: 07/10/2018 Time: 20:44 Bed 20 Private MD: None, None Diagnosis: Weakness;Dehydration;Hypoxemia Presentation: 07/10 20:54 Transition of care: patient was not received from another setting of care. Onset of aj symptoms was July 10, 2018. Risk Assessment: Do you want to hurt yourself or someone else? Patient reports no desire to harm self or others. Initial Sepsis Screen: Does the patient meet any 2 criteria? No. Patient's initial sepsis screen is negative. Does the patient have a suspected source of infection? No. Patient's initial sepsis screen is negative. Care prior to arrival: None. 20:54 Method Of Arrival: Wheelchair aj 20:54 Acuity: BRIAN 2 aj 20:54 Presenting complaint: Mother states: Patient was very uncomfortable at home and hospice jd3 nurse was unable to respond quickly enough to patient's home. Patient is having SOB and discomfort. Triage Assessment: 20:55 General: Appears in no apparent distress. uncomfortable, emaciated, Behavior is drowsy. aj Pain: Complains of pain in entire body. Neuro: Level of Consciousness is awake, alert, obeys commands, Oriented to person, place, time, situation, Appropriate for age. Respiratory: Reports shortness of breath Airway is patent Respiratory effort is even, labored, Respiratory pattern is tachypnea Onset: The symptoms/episode began/occurred gradually, the patient has moderate shortness of breath. Derm: Skin is thin, Skin is pale. 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 - Social history:: Smoking status: Patient/guardian denies using tobacco. - Ebola Screening: : Patient negative for fever greater than or equal to 101.5 degrees Fahrenheit, and additional compatible Ebola Virus Disease symptoms Patient denies exposure to infectious person Patient denies travel to an Ebola-affected area in the 21 days before illness onset No symptoms or risks identified at this time. Screenin:38 Abuse screen: Denies threats or abuse. Nutritional screening:. Tuberculosis screening: jd3 No symptoms or risk factors identified. Fall Risk Ambulatory Aid- Crutches/Cane/Walker (15 pts). Gait- Weak (10 pts.). Mental Status- Oriented to own ability (0 pts). Total Kaye Fall Scale indicates Low Risk Score (25-44 pts). Fall prevention measures have been instituted. Side Rails Up X 2 Placed close to Nursing Station Frequent Obs/Assesments occuring Family Present and informed to notify staff if they need to leave bedside. Assessment: 21:05 Reassessment: provider ordered no vital signs for now. will update when orders are jd3 updated. 21:45 General: Appears uncomfortable, Behavior is cooperative, drowsy, restless. Pain: jd3 Complains of pain in abdomen. Neuro: Level of Consciousness is awake, obeys commands, lethargic, Oriented to person, place, time, situation, Reports weakness. Cardiovascular: Capillary refill < 3 seconds Patient's skin is warm and dry. Respiratory: Reports shortness of breath Airway is patent Respiratory effort is even, unlabored, Respiratory pattern is regular, symmetrical. GI: Abdomen is flat, Reports nausea, vomiting. : No signs and/or symptoms were reported regarding the genitourinary system. EENT: No signs and/or symptoms were reported regarding the EENT system. Derm: Skin is intact, Skin is dry, Skin is pale, Skin temperature is warm. Musculoskeletal: Circulation, motion, and sensation intact. 22:40 Reassessment: No changes from previously documented assessment. Patient and/or family jd3 updated on plan of care and expected duration. Pain level reassessed. Patient is alert, oriented x 3, equal unlabored respirations, skin warm/dry/pink. 23:30 Reassessment: No changes from previously documented assessment. Patient and/or family jd3 updated on plan of care and expected duration. Pain level reassessed. Patient is alert, oriented x 3, equal unlabored respirations, skin warm/dry/pink. awaiting orders and disposition for provider. 07/11 00:26 Reassessment: No changes from previously documented assessment. Patient and/or family jd3 updated on plan of care and expected duration. Pain level reassessed. Patient is alert, oriented x 3, equal unlabored respirations, skin warm/dry/pink. 01:17 Reassessment: No changes from previously documented assessment. Patient and/or family jd3 updated on plan of care and expected duration. Pain level reassessed. Patient is alert, oriented x 3, equal unlabored respirations, skin warm/dry/pink. 02:04 Reassessment: Patient and/or family updated on plan of care and expected duration. Pain jd3 level reassessed. Patient is alert, oriented x 3, equal unlabored respirations, skin warm/dry/pink. Patient states feeling better. Vital Signs: 07/10 20:55 BP 83 / 53; Pulse 126; Resp 34; Temp 97.8(A); Pulse Ox 99% on R/A; Weight 45.36 kg; aj Height 5 ft. 5 in. (165.10 cm); 20:55 Body Mass Index 16.64 (45.36 kg, 165.10 cm) aj ED Course: 20:44 Patient arrived in ED. mr 20:44 None, None is Private Physician. mr 20:55 Triage completed. aj 20:55 Arm band placed on left wrist. Patient placed in an exam room. aj 21:01 Og Ervin MD is Attending Physician. gs 21:39 Beka Noel, RN is Primary Nurse. jd3 21:58 Inserted saline lock: 24 gauge in right wrist, using aseptic technique. Blood collected.ss 22:39 Patient has correct armband on for positive identification. Bed in low position. Call jd3 light in reach. Side rails up X2. Adult w/ patient. 07/11 02:03 No provider procedures requiring assistance completed. IV discontinued, intact, jd3 bleeding controlled, No redness/swelling at site. Pressure dressing applied. Administered Medications: 07/10 22:09 Drug: NS 0.9% 1000 ml Route: IV; Rate: 1 bolus; Site: left wrist; jd3 07/11 02:04 Follow up: Response: No adverse reaction; IV Status: Completed infusion; IV Intake: jd3 1000ml 07/10 22:09 Drug: Dilaudid 1 mg Route: IVP; Site: left wrist; jd3 23:00 Follow up: Response: No adverse reaction; Pain is decreased jd3 07/11 00:25 Drug: Dilaudid 1 mg Route: IVP; Site: right wrist; jd3 02:06 Follow up: Response: No adverse reaction jd3 Intake: 02:04 IV: 1000ml; Total: 1000ml. jd3 Outcome: 01:42 Discharge ordered by MD. batool 02:03 Discharged to home via wheelchair, with family. jd3 02:03 Condition: stable 02:03 Discharge instructions given to patient, family, Instructed on discharge instructions, follow up and referral plans. Demonstrated understanding of instructions, follow-up care. 02:06 Patient left the ED. jd3 Signatures: Maribeth Gaston RN Katherine Boggs Shelby RN Og Clemons MD MD gs Davies, Jonathon, RN RN jd3 Corrections: (The following items were deleted from the chart) 07/10 22:38 22:34 General: Appears uncomfortable, Behavior is cooperative, drowsy, restless, jd3 jd3 22:38 22:34 Pain: Complains of pain in abdomen jd3 jd3 22:38 22:34 Neuro: Level of Consciousness is awake, obeys commands, lethargic, Oriented to jd3 person, place, time, situation, Reports weakness jd3 22:38 22:34 Cardiovascular: Capillary refill < 3 seconds Patient's skin is warm and dry. jd3 jd3 22:38 22:34 Respiratory: Reports shortness of breath Airway is patent Respiratory effort is jd3 even, unlabored, Respiratory pattern is regular, symmetrical, jd3 22:38 22:34 GI: Abdomen is flat, Reports nausea, vomiting, jd3 jd3 22:38 22:34 : No signs and/or symptoms were reported regarding the genitourinary system. [id number] 22:38 22:34 EENT: No signs and/or symptoms were reported regarding the EENT system. jd3 jd3 22:38 22:34 Derm: Skin is intact, Skin is dry, Skin is pale, Skin temperature is warm jd3 jd3 22:38 22:34 Musculoskeletal: Circulation, motion, and sensation intact. jd3 jd3 22:42 20:54 Presenting complaint: Mother states: Patient was very uncomfortable at home and j hospice nurse was unable to respond quickly enough to patient's home. Patient is having SOB and discomfort. aj 07/11 00:26 07/10 21:30 Reassessment: provider ordered no vital signs for now. will update when jd3 orders are updated. jd3 07/11 02:04 07/10 22:40 Reassessment: No changes from previously documented assessment. Patient jd3 and/or family updated on plan of care and expected duration. Pain level reassessed. jd3 07/11 02:04 07/10 23:30 Reassessment: No changes from previously documented assessment. Patient jd3 and/or family updated on plan of care and expected duration. Pain level reassessed. awaiting orders and disposition for provider. j 07/11 02:04 00:26 Reassessment: No changes from previously documented assessment. Patient and/or jd3 family updated on plan of care and expected duration. Pain level reassessed. jd3 01:17 Reassessment: No changes from previously documented assessment. Patient and/or jd3 family updated on plan of care and expected duration. Pain level reassessed. jd3
== END 2018-07-11 02:06 | disposition home or self-care (01) ==
LOC: ER 20:41
DX: E86.0 Dehydration (principal); R53.1 Weakness; R09.02 Hypoxemia; C16.0 Malignant neoplasm of cardia; C79.60 Secondary malignant neoplasm of unspecified ovary; C79.89 Secondary malignant neoplasm of other specified sites
CPT/HCPCS: 99283; J1170; J7030